=== PATIENT | female | born 1955 | race Caucasian/White ===

== ENCOUNTER 2021-05-29 19:44 | Emergency (ER) | payer SELFPAY ==
[~2021-05-29] VITALS: Ht 157.5 cm; Wt 80.7 kg
[2021-05-29 19:50] VITALS: BP 180/71
--- NOTE | 2021-05-29 19:53 | NUR ---
TO LOBBY A/W BED AMBULATORY
== END 2021-05-29 21:02 | disposition left against medical advice (07) ==
LOC: MED 19:44
DX: R07.0 Pain in throat (principal); Z53.21 Procedure and treatment not carried out due to patient leaving prior to being seen by health care provider
CPT/HCPCS: 70360; 99281

== ENCOUNTER 2021-05-30 18:23 | Emergency (ER) | payer SELFPAY ==
[~2021-05-30] VITALS: Ht 157.5 cm; Wt 75.3 kg
[2021-05-30 18:33] VITALS: BP 146/80
--- NOTE | 2021-05-30 18:49 | NUR ---
65 Y/O FEMALE C/O THROAT PAIN 12/18 X1DAY S/P ACCIDENTLY EATING GLASS AT A [employer]. PT STATES "IT FEELS LIKE SOMETHING IS STUCK IN MY THROAT". DENIES N/V, DENIES FEVER/CHILLS. PT WAS HERE YESTERDAY, BUT LEFT WITHOUT BEING SEEN DENIES PMH NKA
--- NOTE | 2021-05-30 19:23 | NUR ---
Pt report given to FE THORPE. Transfer of care at this time.
[2021-05-30 20:15] VITALS: BP 138/78
--- NOTE | 2021-05-30 20:15 | NUR ---
Patient discharged with v/s stable. Written and verbal after care instructions given and explained. Patient verbalized understanding. Ambulatory with steady gait. All questions addressed prior to discharge. Advised to follow up with PMD.
== END 2021-05-30 20:15 | disposition home or self-care (01) ==
LOC: MED 18:23
DX: S27.818A Other injury of esophagus (thoracic part), initial encounter (principal); I10 Essential (primary) hypertension; Z90.710 Acquired absence of both cervix and uterus; X58.XXXA Exposure to other specified factors, initial encounter; Y93.89 Activity, other specified; Y92.89 Other specified places as the place of occurrence of the external cause; Y99.8 Other external cause status
CPT/HCPCS: 99283